=== PATIENT | female | born 1935 | race Caucasian/White ===

== ENCOUNTER → 2024-01-14 | Outpatient (REF) | payer MEDICARE ==
[~2024-01-14] MED LIST: AMITIZA24 MCG PO; ASPIRIN81 MG PO; B12 IM; CALCIUM CITRAT1 EAC3 PO; CO Q-10100 MG PO; DEXILANT60 MG PO; EAC PO; FEXOFENADINE H180 MG PO; FLUNISOLIDE25 M1; FOLIC ACID1 MG PO; IBUPROFEN600 MG PO; MAGNESIUM500 MG PO; MECLIZINE HCL25 MG PO; MELOXICAM7.5 MG PO; METHOTREXA25 MG/1 ML INJ; NASAREL INH; PRAVASTATIN SOD40 MG PO; REMICADE100 MG/VIA INJ; SUCRALFATE1 GM PO; VITAMIN D32000 UNI1 PO; [UNRECOGNIZED DRUG - OTHER]; [UNRECOGNIZED DRUG - OTHER] PO
== END ==
LOC: RAD 09:49
PROVIDERS: ATTEND Internal Medicine
DX: M25.551 Pain in right hip (principal); M16.11 Unilateral primary osteoarthritis, right hip

== ENCOUNTER → 2024-02-17 | Outpatient (REF) | payer MEDICARE | LOC: US 11:19 | PROVIDERS: ATTEND Internal Medicine | DX: N28.1 Cyst of kidney, acquired (principal) | CPT/HCPCS: 76770; 76857 ==